=== PATIENT | female | born 1985 | race Caucasian/White ===

== ENCOUNTER 2020-11-15 03:02 | Outpatient (CLI) | payer BC, SELFPAY ==
[2020-11-15 17:42] LABS: TSH (W/Ref FT4) 2.01 uIU/mL (0.36-3.74)
== END 2020-11-15 03:03 | disposition home or self-care (01) ==
PROVIDERS: Visit Provider Nurse Practitioner Family
DX: Z32.01 Encounter for pregnancy test, result positive (principal); Z86.39 Personal history of other endocrine, nutritional and metabolic disease; R53.83 Other fatigue
CPT/HCPCS: 36415; 84443

== ENCOUNTER 2020-12-09 03:50 | Outpatient (CLI) | payer BC, SELFPAY ==
[2020-12-09 15:02] LABS: Kit/Specimen SENT
[2020-12-09 15:26] LABS: Abs Immature Grans 0.05 10^3/uL (0.0-0.06); Absolute Basophil Count 0.05 10^3/uL (0.0-0.2); Absolute Eosinophil Count 0.12 10^3/uL (0.0-0.7); Absolute Lymphocyte Count 2.43 10^3/uL (1.2-3.4); Absolute Monocyte Count 0.62 10^3/uL (0.1-0.8); Basophils % 0.4; Eosinophils % 0.9; HCT 40.4 % (36.0-46.0); HGB 13.8 g/dL (11.2-15.7); Immature Grans % 0.4; Lymphocytes % 18.2; MCH 29.6 pg (27.0-33.0); MCHC 34.2 % (32.0-36.0); MCV 86.7 fL (80-95); MPV 11.4 fL (8.0-11.0); Monocytes % 4.6; Neutrophils % 75.5; Nucleated RBC 0 %; Platelet Count 233 10^3/uL (130-400); RBC 4.66 10^6/uL (3.93-5.22); RDW 12.3 % (11.7-14.6); WBC 13.37 10^3/uL (4.4-10.8)
[2020-12-09 15:29] LABS: Absolute Neutrophil Count 10.09 10^3/uL (1.2-6.7)
[2020-12-09 16:13] LABS: *AMPHETAMINES SCREEN URINE Negative (Negative); *BARBITURATES SCREEN URINE Negative (Negative); *BENZODIAZEPINES SCREEN URINE Negative (Negative); Cannabinoids THC Negative (Negative); Cocaine Screen,Urine Negative (Negative); METHADONE URINE SCREEN Negative (Negative); OPIATES URINE SCREEN Negative (Negative)
[2020-12-09 16:17] LABS: Tricyclic Antidepressants Negative (Negative)
[2020-12-10 10:08] LABS: Hepatitis C Ab w Rflx HCV PCR Negative (Negative)
[2020-12-10 11:08] LABS: Varicella IgG Antibody Negative (See Note)
[2020-12-10 11:12] LABS: Rubella IgG Ab (UVM) Positive (See Note)
[2020-12-10 11:20] LABS: HIV-1/2 Ag & Ab Screen Negative (Negative)
[2020-12-10 12:59] LABS: Hepatitis B Surface Ag Negative (Negative)
[2020-12-11 13:35] LABS: Syphilis Total Ab w/Reflex Nonreactive (Nonreactive)
[2020-12-18 23:06] LABS: Result Summary NEGATIVE; Specimen WB Whole Blood
[2020-12-19 13:50] LABS: Specimen WB Whole Blood
== END 2020-12-09 03:51 | disposition home or self-care (01) ==
LOC: LBO 03:50
PROVIDERS: Visit Provider Advanced Practice Midwife
DX: O09.521 Supervision of elderly multigravida, first trimester (principal); Z34.91 Encounter for supervision of normal pregnancy, unspecified, first trimester; Z36.89 Encounter for other specified antenatal screening
CPT/HCPCS: 80307; 81329; 86787; 86803; 86850; 86900; 86901; 87340; 87389; 81220; 84443; 85025; 86762; 86780; 87086

== ENCOUNTER 2021-01-28 13:31 | Outpatient (REF) | payer BC, SELFPAY ==
[2021-01-29 15:26] LABS: Chlamydia Result Negative (Negative); GC Result Negative (Negative)
== END 2021-01-28 13:32 | disposition home or self-care (01) ==
LOC: LBN 13:31
PROVIDERS: Visit Provider Advanced Practice Midwife
DX: Z11.3 Encounter for screening for infections with a predominantly sexual mode of transmission (principal)
CPT/HCPCS: 87491; 87591

== ENCOUNTER 2021-02-03 02:32 | Outpatient (CLI) | payer BC, SELFPAY ==
[2021-02-03 17:42] LABS: FREE T4 0.99 ng/dL (0.76-1.46); TSH 4.75 uIU/mL (0.36-3.74)
[2021-02-06 10:01] LABS: Buprenorphine Negative ng/mL (Cutoff: 5.0); Norbuprenorphine Negative ng/mL (Cutoff: 2.5)
== END 2021-02-03 02:33 | disposition home or self-care (01) ==
LOC: LBO 02:32
PROVIDERS: Advanced Practice Midwife; Visit Provider Advanced Practice Midwife
DX: O09.521 Supervision of elderly multigravida, first trimester; Z86.39 Personal history of other endocrine, nutritional and metabolic disease
CPT/HCPCS: 36415; 80307; 84439; 84443

== ENCOUNTER 2021-02-25 01:57 | Outpatient (CLI) | payer BC, SELFPAY ==
[2021-02-25 11:09] LABS: TSH (W/Ref FT4) 1.72 uIU/mL (0.36-3.74)
== END 2021-02-25 01:58 | disposition home or self-care (01) ==
LOC: LBO 01:58
PROVIDERS: Visit Provider Advanced Practice Midwife
DX: E03.9 Hypothyroidism, unspecified (principal); O99.280 Endocrine, nutritional and metabolic diseases complicating pregnancy, unspecified trimester
CPT/HCPCS: 36415; 84443

== ENCOUNTER 2021-04-08 02:09 | Outpatient (CLI) | payer BC, SELFPAY | END 2021-04-08 02:10 | disposition home or self-care (01) | LOC: LBO 02:10 | PROVIDERS: Visit Provider Advanced Practice Midwife ==

== ENCOUNTER 2021-04-10 03:11 | Outpatient (CLI) | payer BC, SELFPAY ==
[2021-04-10 12:06] LABS: HCT 38.7 % (36.0-46.0); HGB 12.9 g/dL (11.2-15.7); MCH 29.9 pg (27.0-33.0); MCHC 33.3 % (32.0-36.0); MCV 89.8 fL (80-95); MPV 11.2 fL (8.0-11.0); Platelet Count 192 10^3/uL (130-400); RBC 4.31 10^6/uL (3.93-5.22); RDW 12.7 % (11.7-14.6); RDW-SD 42.3 fL
[2021-04-10 12:14] LABS: Glucose,1 Hr (Glucola) 118 mg/dL (80-140)
== END 2021-04-10 03:12 | disposition home or self-care (01) ==
LOC: LBO 03:12
PROVIDERS: Advanced Practice Midwife; Visit Provider Advanced Practice Midwife
DX: Z34.93 Encounter for supervision of normal pregnancy, unspecified, third trimester (principal)
CPT/HCPCS: 36415; 82950; 85027

== ENCOUNTER 2021-05-22 03:39 | Outpatient (CLI) | payer BC, SELFPAY ==
[2021-05-22 18:16] LABS: FREE T4 1.03 ng/dL (0.76-1.46); TSH 2.64 uIU/mL (0.36-3.74)
== END 2021-05-22 03:40 | disposition home or self-care (01) ==
LOC: LBO 03:39
PROVIDERS: Advanced Practice Midwife; Visit Provider Advanced Practice Midwife
DX: E03.9 Hypothyroidism, unspecified (principal); O99.283 Endocrine, nutritional and metabolic diseases complicating pregnancy, third trimester
CPT/HCPCS: 36415; 84439; 84443

== ENCOUNTER 2021-06-04 16:59 | Outpatient (REF) | payer BC, SELFPAY ==
[2021-06-04 15:15] LABS: *AMPHETAMINES SCREEN URINE Negative (Negative); *BARBITURATES SCREEN URINE Negative (Negative); *BENZODIAZEPINES SCREEN URINE Negative (Negative); Cannabinoids THC Negative (Negative); Cocaine Screen,Urine Negative (Negative); METHADONE URINE SCREEN Negative (Negative); OPIATES URINE SCREEN Negative (Negative)
[2021-06-04 15:17] LABS: Tricyclic Antidepressants Negative (Negative)
[2021-06-10 10:34] LABS: Buprenorphine Negative ng/mL (Cutoff: 5.0); Norbuprenorphine Negative ng/mL (Cutoff: 2.5)
== END 2021-06-04 17:00 | disposition home or self-care (01) ==
LOC: LBN 16:59
PROVIDERS: Visit Provider Advanced Practice Midwife
DX: O09.523 Supervision of elderly multigravida, third trimester (principal)
CPT/HCPCS: 80307; 87081

== ENCOUNTER 2021-06-13 02:51 | Outpatient (CLI) | payer BC, SELFPAY | END 2021-06-13 02:52 | disposition home or self-care (01) | LOC: LBO 02:51 | PROVIDERS: Visit Provider Advanced Practice Midwife ==

== ENCOUNTER 2021-06-20 02:14 | Outpatient (CLI) | payer BC, SELFPAY ==
[2021-06-20 22:15] LABS: Thyroperoxidase Antibody <28 U/mL (<=60)
== END 2021-06-20 02:15 | disposition home or self-care (01) ==
LOC: LBO 02:15
PROVIDERS: Visit Provider Advanced Practice Midwife
DX: O99.283 Endocrine, nutritional and metabolic diseases complicating pregnancy, third trimester (principal); E03.9 Hypothyroidism, unspecified; Z3A.38 38 weeks gestation of pregnancy
CPT/HCPCS: 36415; 86376

== ENCOUNTER 2021-07-09 07:36 | Outpatient (CLI) | payer BC, SELFPAY ==
[2021-07-09 09:14] VITALS: BP 113/74; PULSE 96; TEMP 36.8
--- NOTE | 2021-07-09 12:23 | W.OBNST ---
Date of service: 07/09/21 Time of Service: 12:24 NST Evaluation Reason for NST Reasons for Nonstress Test: POSTDATES Gestational Age Gestational Age in Weeks and Days: 41 Weeks and 1Days Test and Monitor Explained Test/Monitor Explained: Test Explained and Monitor Explained Vital Signs Blood Pressure: 113/74 Pulse: 96 Temperature: 98.2 F Urine Results Urine Protein: Negative Urine Ketones: Negative Urine Glucose: Negative Urine Blood: Negative NST Information Date on Monitor: 07/09/21 Time on Monitor: 09:10 Date off Monitor: 07/09/21 Time off Monitor: 09:40 Total Time on Monitor: 30 NST Interventions: PO Hydration NST Evaluation Patient States Movement: Present FHR Baseline: 150 Variability: Moderate 6-25 bpm Accelerations: 15x15 Decelerations: None NST Results: Reactive Note NST Note Note: SUNNY 19 Returns in 5 days for induction of labor for postdates NST Reviewed and Verified by: Mar Currie
[2021-07-09 12:24] VITALS: BP 113/74; PULSE 96; TEMP 36.8
== END 2021-07-09 10:15 | disposition home or self-care (01) ==
LOC: BCD 07:42 → OBS 08:59
PROVIDERS: Visit Provider Advanced Practice Midwife
DX: O48.0 Post-term pregnancy (principal); Z3A.41 41 weeks gestation of pregnancy
CPT/HCPCS: 59025

== ENCOUNTER 2021-07-14 07:44 | Inpatient (IN) | payer BC, SELFPAY ==
[2021-07-14] VITALS (24 sets, daily range): BP systolic 104–140; BP diastolic 57–79; PULSE 67–195; RESP 12–20; TEMP 36.8–37.1; O2SAT 83–100; BMI 29.1
--- NOTE | 2021-07-14 08:51 | HPE_ITS ---
Date of service: 07/14/21 Time of Service: 08:51 Assessment and Plan Assessment and plan (1) Encounter for induction of labor: Status: Acute Assessment and plan: A: 35 yo @ 41+6 wks Rodriguez score=5, EFW 4100 gms Pelvis proven to 88 GBS neg, Category 1 tracing Increased risk of SD and PPH due to EFW/postdates AMA with nml screening, hypothyroidism on medication P: Admit to BC, CBC, T&S, COVID swab Begin cervical ripening with misoprostel Dr. Mccullough available for consultation as needed Anticipate (2) 41 weeks gestation of : Status: Acute OB-HPI Labor/Delivery History of Present Illness Reason for Visit: Induction Chief Complaint: Scheduled Induction of Labor Indication for Induction: Post Date. LYNETTE Calculator Estimated Delivery Date Method Current WG Current Estimate 07/01/21 LMP (Certain) 41w 6d Other Estimates 07/01/21 Ultrasound #1 41w 6d History of Present Expected Delivery Route/Plan - CNM FOB/ - Edinson Earl (2nd child together) Varicella Non-Immune, offer vaccine / GBS neg BB no circ Interested in nitrous oxide, hopes to avoid epidural- planning placental encapsulation Specific Issues/Plan 1. Closely spaced preg's, conceived @ 11 months PP 2. AMA: accepts [facility] referral and level 2 sono 2a. US at [facility] 02/11/21: nml, MFM consult completed, no further surveillance needed 3. Desires all genetic testing, drawn 12/09/20; plan single marker AFP 16-20 wks 3a.CF neg, SMA, and Claritest neg- decided not to have AFP. 4. Hx depression and PPD, no meds. Accepts referral to [facility] 5. s/p breast reduction, had milk supply issues, interested in LC consult after 36 wks 6. PCN allergy ID'ed in childhood, desires [facility] allergy testing 6a. consult 02/04/21 @ 19 wks: plan skin testing prior to 28 wks on 04/08/21 6b. [facility] allergy test 04/08/21: No risk of anaphylaxis, 2% risk of skin rash 7. Hypothyroidism - stopped medication 6 weeks post . First trimester TSH 1.80- 7a. second trimester TSH 4.75 started on 25 mcg levothyroxine 7b. repeat TSH 02/25: nml @ 1.72. repeat @ 34 wks: TSH 2.64 (WNL)- TPO - (WNL) 8. Varicella non immune - discuss w/pt 02/25, accepts vaccine 9. Viky received booster, Edinson is vaccinated. Assessment: History Reviewed & Current Informed Consent Informed Consent: Induction of Labor and Risk,Benefits,Alternatives Discussed Review of Systems Constitutional Constitutional: Reports system reviewed and no additional complaints, except as documented Cardiovascular Cardiovascular: Reports system reviewed and no additional complaints, except as documented Respiratory Respiratory: Reports system reviewed and no additional complaints, except as documented Gastrointestinal Gastrointestinal: Reports system reviewed and no additional complaints, except as documented Genitourinary Genitourinary: Reports system reviewed and no additional complaints, except as documented (mucous plug came out this morning, pink tinged) Musculoskeletal Musculoskeletal: Reports system reviewed and no additional complaints, except as documented Psychiatric Psychiatric: Reports system reviewed and no additional complaints, except as documented PFSH All Active Problems (Updated 07/14/21 @ 08:53 by Mar Currie) 41 weeks gestation of (Acute) Encounter for induction of labor (Acute) Elderly multigravida, currently (Acute) Hypothyroid in , antepartum (Acute) Maternal varicella, non-immune (Acute) Status post breast reduction (Acute) History of depression (Acute) Medical History (Updated 07/14/21 @ 08:53 by Mar Currie) History of hypothyroidism Penicillin allergy Went to [facility] for allergy testing 04/08/21, has no risk of anaphylaxis, and 2% risk for skin rash. Family History (Updated 04/22/21 @ 15:59 by Tamar Lanza CNM) Paternal Grandmother Breast cancer Father Hyperlipidemia Sister Autonomic neuropathy due to disorder of immune function Hypothyroid Social History Smoking/Tobacco Use Status: Never Smoking risk assessment performed?: Yes History History 6 Para 1 Hx # Term Pregnancies 1 Multiple births 0 Hx # Pregnancies 0 Ectopic pregnancies 0 AB induced 0 Hx Number of Living Children 1 AB spontaneous 4 Past Pregnancies Del. Date GA/Weeks # Outcome Route Wgt Sex Labor Lgth Anesthes ia Location Prov Complic 10/22/19 40 No Successful vaginal 8 lb 8 oz Female Induced, 2 days r egional [place], [place] Delivery Date: 10/22/19 Last Updated by: Tamar Lanza CNM Placenta previa - resolved. unstable lie >37 wks, baby verted self on day of sched'ed C/S so IOL instead: raphael bulb & cervidil together, then pitocin, epidural, Charley Meds Allergies and Home Medications Allergies Allergy/AdvReac Type Severity Reaction Status Date / Time Penicillins Allergy Severe Full Blown Verified 07/03/21 11:33 rash/hives Home Medications Medication Instructions Recorded Confirmed Type lactobacillus combination no.4 3 3,000 mmu cells PO DAILY 11/14/20 07/14/21 History billion cell capsule (Probiotic) prenat.vits,lito,[id number] 1 tab PO DAILY 11/14/20 07/14/21 History pyridoxine (vitamin B6) 50 mg 50 mg PO DAILY PRN 01/06/21 07/14/21 History tablet magnesium carbonate 250 mg capsule 320 mg PO DAILY cap 03/25/21 07/14/21 History levothyroxine 25 mcg tablet 25 mcg PO DAILY #60 tab 06/18/21 07/14/21 Rx Exam Physical Exam Vital signs: P 88, R 12, temp 98.8 Vital Signs Reviewed: Yes Constitutional Constitutional: no acute distress, average body habitus and cooperative Detailed Labor and Delivery Exam Dilation: 3.5 Effacement (%): 60 station: -3 Position: LOP Cervix position: posterior Consistency: medium RODRIGUEZ Score(Cervical Ripeness Score): 5 Amniotic Membrane Status: Intact Fetus A Heart Rate Baseline: 145 Monitor Accelerations: 15 X 15 Monitor Decelerations: None Variability: Moderate (6-25 BPM) Presentation: Cephalic Categories: Category I Est. Weight: 9 lb 0.623 oz Est. Weight: 4100 gms HEENT Exam HEENT Exam: Normal Neck Exam Neck Exam: Normal Chest/Brest/Axilla Exam Chest Exam: Normal Breast Exam Breast Exam: Not Done Respiratory Exam Respiratory Exam: Normal Cardiovascular Exam Cardiovascular Exam: Normal Abdominal Exam Abdominal Exam: Normal (Gravid, nontender) Rectal Exam Rectal Exam: Normal Exam Exam: Normal Extremities Exam Extremities Exam: Normal Back/Spine/Pelvis Exam Back Exam: Normal Skin Exam Skin Exam: Normal Neurological Exam Neurological Exam: Normal Psychiatric Exam Psychiatric Exam: Normal Results Results Group Beta Strep: Negative Blood Type: B+ Rubella Status: Immune Varicella Immunity: Nonimmune Risk Assessment Risk for Shoulder Dystocia Historical/Initial OB: NEGATIVE FOR: Pelvic Abnormality, Pre- BMI>30, Previous Shoulder Dystocia or Previous Macrosomia 40 Weeks: NEGATIVE FOR: EFW> 4500 gms, Maternal Weight Gain >40lb or Post Dates Increased Risk?: Yes Delivery Plan @ 36wks: spont labor, , pelvis proven to Delivery Plan @ 40 wks: spont labor, Risk for Pre-Eclampsia Date Initiated/Initials: not indicated, JK Yes, if one or more: NEGATIVE FOR: Hx Pre-E/Gest HTN, Chronic HTN, Multiple Gestation, Pre-gestational DM, Renal Disease, Systemic Lupus or APA Syndrome Yes, if 2 or more: POSITIVE FOR: Age>= 35 yrs; NEGATIVE FOR: Nulliparity, >10yr btwn pregnancies, BMI>30, ethinicty, Mother/Sister w/ Pre-E or Previous IUGR Risk for Post- Hemorrhage Initial: NEGATIVE FOR: Multiple Gestation, Previous PPH, Known Clotting Deficiency, Grand Multiparity or Anticoagulation At Risk?: Yes (due to EFW >4000 gms) Counseled re: Active Management: Yes Risks Reviewed Risks Reviewed Upon Admission: Yes
[2021-07-14] MEDS: miSOPROStol 25 MCG TAB PO ×2 (09:59→14:20)
[2021-07-14 10:09] LABS: Source Nasal/Nares
[2021-07-14 10:10] LABS: HCT 38.7 % (36.0-46.0); HGB 12.6 g/dL (11.2-15.7); MCH 28.3 pg (27.0-33.0); MCHC 32.6 % (32.0-36.0); MCV 87 fL (80-95); MPV 12.4 fL (8.0-11.0); Platelet Count 207 10^3/uL (130-400); RBC 4.46 10^6/uL (3.93-5.22); RDW 13.2 % (11.7-14.6); RDW-SD 41.4 fL; WBC 13.04 10^3/uL (4.4-10.8)
[2021-07-14 10:47] LABS: COVID-19 PCR Negative (Negative)
[2021-07-14] MEDS: Bupivacaine 0.25% Pres-Free 10 ML VIAL EP (11:15)
[2021-07-14] MEDS: Lactated Ringers 1,000 ML 150 ML IV (16:30)
--- NOTE | 2021-07-14 17:50 | W.PM.OBNL1 ---
Date of service: 07/14/21 Time of Service: 17:50 Informed Consent Informed Consent: Risk,Benefits,Alternatives Discussed and Other (AROM) Pelvic Exam Dilation: 6 Effacement (%): 70 station: -2 Position: LOP Cervix Position: mid Consistency: soft Vaginal Exam Presentation: Cephalic Contractions Contraction Frequency(min): q3-4 Intensity: Mild/Moderate Fetus A Monitor: External (US) Heart Rate Baseline: 140 Variability: Moderate (6-25 BPM) Categories: Category I Accelerations: 15 X 15 Decelerations: Early Amniotic Membrane Status: Ruptured Rupture Method: Artifical Amniotic Fluid: Clear Amount: large Date of Membrane Rupture: 07/14/21 Time of Membrane Rupture: 17:43 Assessment and Plan Assessment and plan (1) Encounter for induction of labor: Status: Acute Assessment and plan: A: Multipara postdates induction Cervical ripening completed Category 1 tracing, Baseline 140 bpm P: Expectant management Anticipate Objective Abnormal lab results 07/14/21 Range/Units 09:45 WBC 13.04 H (4.4-10.8) 10^3/uL MPV 12.4 H (8.0-11.0) fL Temp Pulse Resp BP 98.8 F 75 12 120/76 07/14/21 15:26 07/14/21 17:47 07/14/21 09:06 07/14/21 17:47 Laboratory Results WBC 13.04 10^3/uL (4.4-10.8) H 07/14/21 09:45 RBC 4.46 10^6/uL (3.93-5.22) 07/14/21 09:45 Hgb 12.6 g/dL (11.2-15.7) 07/14/21 09:45 Hct 38.7 % (36.0-46.0) 07/14/21 09:45 MCV 87 fL (80-95) 07/14/21 09:45 MCH 28.3 pg (27.0-33.0) 07/14/21 09:45 MCHC 32.6 % (32.0-36.0) 07/14/21 09:45 RDW 13.2 % (11.7-14.6) 07/14/21 09:45 Plt Count 207 10^3/uL (130-400) 07/14/21 09:45 MPV 12.4 fL (8.0-11.0) H 07/14/21 09:45 COVID-19 Source Nasal/Nares 07/14/21 09:50 SARS-CoV-2 (PCR) Negative (Negative) 07/14/21 09:50 Patient ABO/Rh B Positive 07/14/21 09:45 Antibody Screen NEGATIVE 07/14/21 09:45 Vital Signs Reviewed: Yes Objective Narrative Objective Narrative: Received misoprostel 25 mcg PO q4 hrs x2 Large forebag bulging with contraction Cvx 6/70% vtx -2 AROM easily accomplished for large amt clear fluid Pt and baby tolerated procedure well Normotensive, afebrile, labs WNL IV access established Coping very well with labor, FOB bedside for support Pt has been ambulating, using floor mat and physioball Category 1 tracing per NOVI Subjective Interval history since last seen: Increasingly uncomfortable contractions throughout the day. Tolerating PO intake well. Results Hemoglobin/Hematocrit: Hgb 12.6 g/dL (11.2-15.7) 07/14/21 09:45 Hct 38.7 % (36.0-46.0) 07/14/21 09:45 Abnormal Lab Findings: Abnormal Labs 07/14/21 09:45 WBC 13.04 H MPV 12.4 H
--- NOTE | 2021-07-14 22:30 | W.PM.OBNL1 ---
Date of service: 07/14/21 Time of Service: 22:30 Informed Consent Informed Consent: Regional Anesthesia and Risk,Benefits,Alternatives Discussed Pelvic Exam Dilation: 7 Effacement (%): 70 station: -2 Cervix Position: mid Consistency: soft Vaginal Exam Presentation: Cephalic Contractions Contraction Frequency(min): q2-3 Intensity: Moderate/Strong Fetus A Monitor: External (US) Heart Rate Baseline: 140 Presentation: Cephalic Variability: Moderate (6-25 BPM) Categories: Category I Accelerations: 15 X 15 Decelerations: Early Amniotic Membrane Status: Ruptured Assessment and Plan Assessment and plan (1) Encounter for induction of labor: Status: Acute Assessment and plan: A: Active labor, slow progress since AROM 4 hrs ago Pt requesting regional anesthesia 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 Pt has showered, used nitrous, changed positions often, emesis x1, currently in the tub. Now requesting regional anesthesia.
[2021-07-14] MEDS: Lactated Ringers 500 ML IV (22:45)
--- NOTE | 2021-07-14 22:57 | W.ANESPRE ---
General Info Date of Service Date Performed: 07/14/21 Height: 5 ft 8.9 in Weight: 89.358 kg Body Mass Index (BMI): 29.1 Meds Allergies and Home Medications Allergies Allergy/AdvReac Type Severity Reaction Status Date / Time Penicillins Allergy Severe Full Blown Verified 07/03/21 11:33 rash/hives Home Medication Medication Instructions Recorded lactobacillus combination no.4 3 3,000 mmu cells PO DAILY 11/14/20 billion cell capsule (Probiotic) prenat.vits,lito,[id number] 1 tab PO DAILY 11/14/20 pyridoxine (vitamin B6) 50 mg 50 mg PO DAILY PRN 01/06/21 tablet magnesium carbonate 250 mg capsule 320 mg PO DAILY cap 03/25/21 levothyroxine 25 mcg tablet 25 mcg PO DAILY #60 tab 06/18/21 Current Visit Medications: Current Medications Generic Name Dose Route Start Last Admin Trade Name Freq PRN Reason Stop Dose Admin Fentanyl/Ropivacaine 100 ml 07/14/21 22:45 Fentanyl/Ropivacaine 2 Mcg/Ml And 0.125% 100 Ml Bag EP DIRECTED GALO Sodium Chloride 500 mls @ 0 mls/hr 07/14/21 16:43 Saline 500ml Bag IV PRN PRN As Directed Ringer's Solution 500 mls @ 500 mls/hr 07/14/21 22:36 IV 07/14/21 23:35 BOLUS ONE IV Miscellaneous Supplies 1 each 07/14/21 16:45 Iv Access IV DIRECTED GALO Levothyroxine Sodium 25 mcg 07/15/21 06:00 Levothyroxine 25 Mcg Tab PO DAILY@0600 GALO Sodium Chloride 0 ml 07/14/21 16:43 Normal Saline Flush 10 Ml Syr IVP PRN PRN Terbutaline Sulfate 0.25 mg 07/14/21 07:44 Terbutaline 1 Mg/Ml Vial SC PRN PRN PFSH Active Problems Active Problems: Problem Status Onset Code 41 weeks gestation of Z3A.41 Encounter for induction of labor Z34.90 Elderly multigravida, currently O09.529 Hypothyroid in , antepartum O99.280, E03.9 Maternal varicella, non-immune O09.899, Z28.3 Status post breast reduction Z98.890 History of depression Z87.59, Z86.59 Medical History Medical History (Updated 07/14/21 @ 08:53 by Mar Currie) History of hypothyroidism Penicillin allergy Went to [facility] for allergy testing 04/08/21, has no risk of anaphylaxis, and 2% risk for skin rash. Tobacco Smoking/Tobacco Use Status: Never Alcohol Alcohol Intake: current Alcohol intake frequency: a few times a month Alcohol type: wine Substance Use Substance use: Occasionally Substance use type: marijuana Prental History History 6 Para 1 Hx # Term Pregnancies 1 Multiple births 0 Hx # Pregnancies 0 Ectopic pregnancies 0 AB induced 0 Hx Number of Living Children 1 AB spontaneous 4 Past Pregnancies Del. Date GA/Weeks # Outcome Route Wgt Sex Labor Lgth Anesthesia Location Prov Complic 10/22/19 40 No Successful vaginal 3855.535 g Female Induced, 2 days regional [place], [place] Delivery Date: 10/22/19 Last Updated by: Tamar Lanza CNM Placenta previa - resolved. unstable lie >37 wks, baby verted self on day of sched'ed C/S so IOL instead: raphael bulb & cervidil together, then pitocin, epidural, Corine Vital Signs and Lab Results Vital Signs Most Recent Vital Signs in EMR: Most Recent Vital Signs Temp Pulse Resp BP 37.1 C 114 H 20 124/58 L 07/14/21 22:28 07/14/21 22:52 07/14/21 21:06 07/14/21 22:52 Lab Results Result Diagrams: 07/14/21 09:45 Blood Type / Crossmatch: Patient ABO/Rh B Positive 07/14/21 Antibody Screen NEGATIVE 07/14/21 Complete Blood Count: White Blood Count 13.04 10^3/uL (4.4-10.8) H 07/14/21 09:45 07/14/21 Red Blood Count 4.46 10^6/uL (3.93-5.22) 07/14/21 09:45 07/14/21 Hemoglobin 12.6 g/dL (11.2-15.7) 07/14/21 09:45 07/14/21 Hematocrit 38.7 % (36.0-46.0) 07/14/21 09:45 07/14/21 Platelet Count 207 10^3/uL (130-400) 07/14/21 09:45 07/14/21 Complete Metabolic Panel: No Data to Display Liver Function Panel: No Data to Display Coagulation Panel: No Data to Display Cardiac Panel: No Data to Display Arterial Blood Gas: No Data to Display Venous Blood Gas: No Data to Display Pancreas Panel: No Data to Display Thyroid Panel: No Data to Display Infectious Disease: Coronavirus (COVID-19)(PCR) Negative (Negative) 07/14/21 09:50 07/14/21 Coronavirus 2019 Source Nasal/Nares 07/14/21 09:50 07/14/21 Blood Cultures: No Data to Display Toxicology Panel: No Data to Display Panel: No Data to Display Anesthesia Assessment and Plan Anesthesia History Personal History: No History of Anesthesia Complications Family History: No Family History of Anesthesia Complications Exercise Tolerance Exercise Tolerance: Metabolic Equivalents>4 Pertinent Negatives Pertinent Negatives: No Major Cardiovascular Symptoms or Complaints and No Major Pulmonary Symptoms or Complaints Cardiac & Pulmonary Exam Cardiac Exam: Normal S1/S2 Heart Sounds Pulmonary Exam: Clear Bilateral Breath Sounds Implantable Cardiac Device Does patient have a Pacemaker or an ICD?: No Airway Exam Known Difficult Airway: No Mallampati Class: 2 Mouth Opening: Normal (> 3cm) Thyromental Distance: Greater than 3 cm Neck Range of Motion: Full ROM Neck Circumference: Normal Teeth Condition: Normal Dentition ASA Classification ASA Score: ASA 2 Emergency Case?: No NPO Status NPO Status: NPO Clears >2 hours, Solids >8 hours Status Status: Confirmed Anesthesia Plan Resuscitation Status: Full Code Anesthesia Technique: Epidural Anesthesia Airway Planned: Natural Airway Monitors Used: Standard Monitors
[2021-07-14] MEDS: fentaNYL 100 MCG/2 ML VIAL EP (23:15)
--- NOTE | 2021-07-14 23:35 | ANES.NEUR_ITS ---
Epidural/Spinal Catheter Date Performed: 07/14/21 Procedure Start: 23:03 Procedure Stop: 23:36 Requesting Provider: Mar Currie Procedure Location: Obstetrics Reason Performed: Labor Epidural Standard Monitors Applied: Blood Pressure, SpO2 and See EMR for corresponding vital signs Patient Position: Sitting Sedation Given (Indicate Dose Given): No Sedation given Patient Mental Status: Awake Sterility: Hand Hygiene, Surgical Cap, Surgical Mask, Sterile Gloves, Sterile Drape/Sheet and Chlorhexidine Procedure Location: L2-L3 Interspace Epidural Needle: Tuohy 18 Gauge Needle Length: 3.5 Inch Needle Approach: Midline Epidural Procedure: Skin Prepped, Sterile Drape Placed, 1% Lidocaine to skin and subcutaneous tissue with 25G needle, Tuohy Needle placed, ABRAHAM to Saline Used, Epidural Catheter Placed, Negative Heme, Negative CSF Flow and Tuohy Needle Removed Catheter Placed?: Catheter Placed Test Dose (Indicate Dose Given): 3ml 1.5% Lidocaine with 1:200K Epinephrine Given and Negative Test Dose Loss of Resistance Depth (cm): 7 Catheter depth at skin (cm): 13 Dressing: Sorbaview Dressing Placed, Mastisol Used and Dressing reinforced with Tape Epidural Provid er Bolus (Indicate Dose Given): Total bolus dose given in 3-5 ml divided doses and Total Bupivacaine 0.25% Given (ml) Dose:: 5 ml Additives (Indicate Dose Given ): Fentanyl PF Dose:: 100 mcg Infusion Medication: Medication Infusion Began Medication Infusion: Other (Ropivicaine 0.125% with Fentanyl 2 mcg/ml) Maintenance Infusion Rate (ml/hour): 10 PCEA Bolus Dose (ml): 5 Post Procedure Pain score (0-10): 2 Block Level: N/A Paresthesia: None Ultrasound: Not Used Number of Attempts (See previous attempts in note section): 1 Procedure Tolerated: No Complications and Patient tolerated well Procedure Outcome: Successful Procedure Comment:: Progressed from 7cm pre to 9 cm dilation post- procedure Performed By: Nanda Lyons
[2021-07-15] VITALS (16 sets, daily range): BP systolic 111–129; BP diastolic 60–82; PULSE 76–133; RESP 18–20; TEMP 36.6–37.3; O2SAT 97–98
[2021-07-15] MEDS: Oxytocin 10 UNITS/ML VIAL IM (00:36)
[2021-07-15] MEDS: Methylergonovine 0.2 MG/ML VIAL (00:37)
--- NOTE | 2021-07-15 01:11 | OBVDS_ITS ---
Date of service: 07/15/21 Time of Service: 01:11 OB Labor/ Delivery Information Baby A Delivery Delivery Method: Spontaneaous Presentation: Cephalic Cephalic Position: Vertex Vertex Position: Left Occipital Anterior Cord Description-Baby A: 3 Vessels, Nuchal Cord (loose) and Reduced Amniotic Fluid: Clear Estimated Blood Loss: 500 ml Delivery Outcome: Liveborn Transferred: Remains with Mother Note: Pt made comfortable after epidural placed, resting in LLP with Pnut ball to encourage rotation and descent, involuntary urges to bear down began shortly thereafter. SVE for 9 cm and vtx +2, category 1 tracing continued. 2nd stage hu ddle completed, preparations for risk of PPH and SD made. Contractions became less frequent, pitocin augmentation begun @ 1mu/min eventually increased to 3 mu/min. Pt repositioned to semifowlers, excellent expulsive efforts resulted in over intact perineum of a vigorous male , pt's legs already in Kristopher position for delivery, loose nuchal cord reduced over head, anterior shoulder came easily, delivery completed and placed in mother's arms immediately. IV access found bent and had to be discontinued, pitocin 10 units given IM and methergine 0.2 mg also given IM in response to PPH risk d/t macrosomia, large gush of blood noted after which Lewis placenta delivered intact with 3VC. Fundus firm below umbilicus and bleeding minimal, cord blood collected, then cord was clamped and cut by FOB. IV restarted for pitocin bolus and infusion, lochia remained minimal with fundus firm. Superficial perineal laceration noted and edges approximated with 1 stitch of 3.0 Vicryl. Lower uterine sweep then done for moderate amount of clots bringing EBL to 500 ml. Pt requests to take placenta home, appropriately labeled and stored. Strong bonding observed, apgars 7/9, weight 4520 gms. Providers Nurse Family Preservation Worker: Mar Currie Nurse: Carlotta Conde Nurse: Christine Fang Labor/Delivery Information Number of Babies in Womb: 1 Steroids Given: None Reason Steroids Not Administered: N/A Group Beta Strep: Negative Antibiotics Administered: No Rubella Status: Immune Blood Type: B+ Varicella Immunity: Nonimmune Shoulder Dystocia: No Stages of Labor Onset of Labor Date: 07/14/21 Onset of Labor Time: 17:45 Complete Dilatation Date: 07/14/21 Complete Dilatation Time: 00:00 Labor - Stage 1 Duration: 0 minutes ROM Baby A: 07/14/21 ROM Baby A: 17:43 ROM Total Time- Baby A: hours-1027minutes Infant Delivery Date-Baby A: 07/14/21 Delivery Time-Baby A: 00:36 Labor Stage 2 Duration: 36 minutes Placenta Delivery Date-Baby A: 07/15/21 Placenta Delivery Time-Baby A: 00:42 Labor-Stage 3 Duration: 24 hours and 6 minutes Total Length of Labor-Baby A: -1029 minutes Placenta Cultured: No Placenta Status: Delivered Baby A Gender: Male Gestational Status: Postterm (>42 wks) Gestational Age in Weeks/Days: 41 Weeks and 6 Days weight: 9 lb 15.438 oz Weight Comment: 4520 gms Score-1 Minute Interval(Baby A) Heart Rate-1 minute: 100 BPM or Greater Respiratory Effort- 1 minute: Slow Respiration/Weak Cry Muscle Tone-1 minute: Active Movement Reflex Response-1 minute: Minimal Response Color-1 minute: Bluish Hands or Feet Total Score-1 minute: 7 Score-5 Minute Interval(Baby A) Heart Rate- 5 minute: 100 BPM or Greater Respiratory Effort-5 minute: Spontaneous/Strong Cry Muscle Tone-5 minute: Active Movement Reflex Response-5 minute: Prompt Response Color-5 minute: Bluish Hands or Feet Total Score- 5 minute: 9 Procedure Procedures: Cord Blood Collection
[2021-07-15] MEDS: Dibucaine 1% 28 GM TUBE TP (03:06)
[2021-07-15] MEDS: Hamamelis Leaf/Glycerin 100 EACH BOX PR (03:06)
[2021-07-15] MEDS: Levothyroxine 25 MCG TAB PO (06:04)
--- NOTE | 2021-07-15 09:14 | W.ANESPOSTOP ---
Postoperative Evaluation Date, Time and Location Date Performed: 07/15/21 Time Performed: 09:00 Patient Location: Day Surgery Unit Vital Signs Most Recent Imported Vital Signs: Most Recent Vital Signs Temp Pulse Resp BP Pulse Ox 36.7 C 89 18 129/82 97 07/15/21 07:38 07/15/21 07:38 07/15/21 04:45 07/15/21 07:38 07/15/21 07:38 Pain Score Most Recent Pain Score: Most Recent Pain Score Pain Level 0 07/14/21 09:59 Assessment Mental Status: Awake (Alert & Oriented to Patient Baseline) Airway and Respiratory Function: Patent airway with normal (patient baseline) respiratory exam Cardiovascular Function: Hemodynamically Stable Hydration Status: Adequately Hydrated Nausea & Vomiting: No Nausea or Vomiting Pain: Pt. Denies Any Pain Peripheral Nerve Block: Patient did not receive a nerve block
[2021-07-16] MEDS: Levothyroxine 25 MCG TAB PO (06:08)
--- NOTE | 2021-07-16 06:41 | OBPPV_ITS ---
Date of service: 07/16/21 Time of Service: 06:41 Assessment and Plan Assessment and plan (1) Term delivered: Status: Acute Assessment and plan: A: Nml PPD#1 Satisfied with experience P: Plan discharge to home today Offer 1st varicella vaccine prior to discharge Continue on current thyroid medication dose Plans Paraguard IUD insertion @ 6-8 wks F/up in 2 & 6 wks Written instructions reviewed and given to pt Subjective Subjective Patient comments: No complaints, Pain well controlled, Tolerating diet and Flatus present Patient's Mood: happy, pleased, a little tired baby status: Doing well, Nursing well, Rooming in and Strong Bonding Observed [place] feeding status: Exclusively breast feeding Exam Physical Exam Vital signs: Temp Pulse Resp BP Pulse Ox 97.9 F 77 18 111/72 98 07/15/21 20:06 07/15/21 20:06 07/15/21 20:06 07/15/21 20:06 07/15/21 20:06 Vital Signs Reviewed: Yes Constitutional Constitutional: no acute distress, average body habitus and cooperative HEENT Exam HEENT Exam: Normal Neck Exam Neck Exam: Normal Breast Exam Bilateral: Breast Exam: Normal and Soft Nipple Exam: Normal and Uninjured Respiratory Exam Respiratory Exam: Normal Cardiovascular Exam Cardiovascular Exam: Normal Abdominal Exam Abdomen: Other (soft, nontender) Fundal Exam Fundus: Below Umbilicus and Firm Rectal Exam Rectal Exam: Normal Exam Perineum: Normal and Repair Intact Extremities Exam Extremity Exam: Normal, Full ROM and Warm to Touch Back/Spine/Pelvis Exam Back Exam: Normal Skin Exam Skin Exam: Normal Neurological Exam Neurological Exam: Normal Psychiatric Exam Psychiatric Exam: Normal Hemorrrhage Note IV Site Right Wrist: IV Catheter Gauge: 20
[2021-07-16 06:43] LABS: HCT 33.7 % (36.0-46.0); HGB 11.2 g/dL (11.2-15.7); MCH 28.4 pg (27.0-33.0); MCHC 33.2 % (32.0-36.0); MCV 86 fL (80-95); MPV 12.2 fL (8.0-11.0); Platelet Count 227 10^3/uL (130-400); RBC 3.94 10^6/uL (3.93-5.22); RDW 13.2 % (11.7-14.6); RDW-SD 41.1 fL; WBC 13.89 10^3/uL (4.4-10.8)
[2021-07-16] MEDS: Varicella Virus Vaccine (Live) 0.5 ML SC (09:26)
[2021-07-16] MEDS: Ibuprofen 600 MG TAB PO (09:28)
[2021-07-16 09:30] VITALS: BP 113/73; PULSE 77; RESP 16; TEMP 36.6
--- NOTE | 2021-07-17 19:53 | DSE_ITS ---
Date of service: 07/16/21 Time of Service: 08:00 DS: Diagnosis Discharge Diagnosis (1) Term delivered: Status: Acute Discharge Plan Disposition Patient Disposition: HOME Condition: Good Discharge Details Reason For Visit: Induction Admit Date/Time: 07/14/21 07:44 Admit Provider: Mar Currie Attending Provider: Mar Currie Primary Care Provider: Unknown,Unknown Hospital Course Hospital Course: under epidural anesthesia, nml course, discharge home on PPD#1 at pt request. Home Meds and New Rx's Prescriptions: No Action prenat.vits,lito,[id number]-cjzr-[id number] Tablet 1 tab PO DAILY Probiotic 3 billion cell capsule 3,000 mmu cells PO DAILY Rx Instructions: administer with a meal magnesium carbonate 250 mg capsule 320 mg PO DAILY levothyroxine 25 mcg tablet 25 mcg PO DAILY Qty: 60 0RF Discharge Instructions Additional Instructions: Please keep you 2 & 6 wk appointments with the midwives, though you may change the 2 wk appt to a telehealth visit if you prefer. If you received your first varicella vaccine prior to leaving the hospital, your second Varicella vaccine will be given at the 6 week appointment. Call for any questions or concerns. Stand Alone Forms: BC Instructions, BC Post Vaginal Deliver Activity:: Activity as Tolerated Equipment/Supplies:: No Equipment Needed Diet:: Normal Diet Discharge Orders Discharge Orders: Discharge Order (Routine); Ordered 07/16/21 Ordered By: Mar Currie Discharge Data Discharge Date/Time-TO BE ENTERED AT DEPARTURE: 07/16/21 10:30 OB:DS Summary Summary Vaginal Delivery Method: Spontaneaous Episiotomy Description: None Laceration Description: None Laceration Extension: N/A Contraception Discussed Contraception Discussed: Yes Contraceptive Plan: IUD, Gender-Baby A: Male weight: 9 lb 15.438 oz Status at Discharge Functional status at discharge: independent ambulation Overall status at discharge: patient is progressing back to baseline Mental Status: mental status grossly normal Speech and Movement: speech and movement normal Mood: congruent mood Affect: normal affect Exam Physical Exam Vital signs: Temp Pulse Resp BP Pulse Ox 97.9 F 77 16 113/73 98 07/16/21 09:30 07/16/21 09:30 07/16/21 09:30 07/16/21 09:30 07/15/21 20:06 Constitutional Constitutional: no acute distress, average body habitus and cooperative HEENT Exam HEENT Exam: Normal Neck Exam Neck Exam: Normal Breast Exam Bilateral: Breast Exam: Normal and Soft Respiratory Exam Respiratory Exam: Normal Cardiovascular Exam Cardiovascular Exam: Normal Abdominal Exam Abdomen: Other (soft, nontender) Fundal Exam Fundus: Below Umbilicus and Firm Rectal Exam Rectal Exam: Normal Exam Perineum: Normal and Repair Intact Extremities Exam Extremity Exam: Normal, Full ROM and Warm to Touch Back/Spine/Pelvis Exam Back Exam: Normal Skin Exam Skin Exam: Normal Neurological Exam Neurological Exam: Normal Psychiatric Exam Psychiatric Exam: Normal PFSH All Active Problems (Updated 07/16/21 @ 06:37 by Mar Currie) Term delivered (Acute) Maternal varicella, non-immune (Acute) Status post breast reduction (Acute) History of depression (Acute) Medical History (Updated 07/16/21 @ 06:37 by Mar Currie) 41 weeks gestation of Elderly multigravida, currently Encounter for induction of labor History of hypothyroidism Hypothyroid in , antepartum Penicillin allergy [place] [facility] [place], has no risk of anaphylaxis, and 2% risk for skin rash. Family History (Updated 04/22/21 @ 15:59 by Tamar Lanza CNM) Paternal Grandmother Breast cancer Father Hyperlipidemia Sister Autonomic neuropathy due to disorder of immune function Hypothyroid Social History Smoking/Tobacco Use Status: Never Smoking risk assessment performed?: Yes Alcohol Intake: current Alcohol Intake frequency: a few times a month Alcohol type: wine Drug use: Occasionally Substance use type: marijuana Do you feel safe at home: Yes Do you feel safe in your relationship?: Yes History History 6 Para 1 Hx # Term Pregnancies 1 Multiple births 0 Hx # Pregnancies 0 Ectopic pregnancies 0 AB induced 0 Hx Number of Living Children 1 AB spontaneous 4 Past Pregnancies Del. Date GA/Weeks # Outcome Route Wgt Sex Labor Lgth Anesthes ia Location Prov Complic 10/22/19 40 No Successful vaginal 8 lb 8 oz Female Induced, 2 days r egional [place], [place] Delivery Date: 10/22/19 Last Updated by: Tamar Lanza CNM Placenta previa - resolved. unstable lie >37 wks, baby verted self on day of sched'ed C/S so IOL instead: raphael bulb & cervidil together, then pitocin, epidural, Corine DS: Data Vitals/I&O Vitals and I&O: Vital Signs Temperature 97.9 F 07/16/21 09:30 Pulse 77 07/16/21 09:30 Pulse Rhythm Regular 07/16/21 09:30 Respiratory Rate 16 07/16/21 09:30 Blood Pressure 113/73 07/16/21 09:30 Blood Pressure Mean 86 07/16/21 09:30 Pulse Oximetry 98 07/15/21 20:06 Oxygen Delivery Method Room Air 07/14/21 09:59 Oxygen Flow Rate 0 07/14/21 09:59 Pain Level 2 07/16/21 09:28 Comment 07/14/21 22:28
== END 2021-07-16 10:30 | disposition home or self-care (01) | DRG 807 ==
PROVIDERS: Admitting Provider Advanced Practice Midwife; Visit Provider Advanced Practice Midwife
DX: O48.0 Post-term pregnancy (principal); Z37.0 Single live birth; O70.0 First degree perineal laceration during delivery; O69.81X0 Labor and delivery complicated by cord around neck, without compression, not applicable or unspecified; Z3A.42 42 weeks gestation of pregnancy; O99.344 Other mental disorders complicating childbirth; F32.A Depression, unspecified; O99.284 Endocrine, nutritional and metabolic diseases complicating childbirth; E03.9 Hypothyroidism, unspecified
CPT/HCPCS: 36415; 85027; 86850; 86900; 86901; 87635; 59025; J2210; J2590; J3010; J3490

== ENCOUNTER 2021-08-15 01:50 | Outpatient (CLI) | payer BC, SELFPAY | END 2021-08-15 01:51 | disposition home or self-care (01) | LOC: LBO 01:50 | PROVIDERS: Visit Provider Advanced Practice Midwife | DX: Z86.39 Personal history of other endocrine, nutritional and metabolic disease (principal) | CPT/HCPCS: 36415; 84443 ==

== ENCOUNTER 2022-02-26 02:09 | Outpatient (CLI) | payer BC, SELFPAY ==
[2022-02-26 12:42] LABS: TSH (W/Ref FT4) 1.86 uIU/mL (0.36-3.74)
== END 2022-02-26 02:10 | disposition home or self-care (01) ==
PROVIDERS: Visit Provider Advanced Practice Midwife
DX: E03.9 Hypothyroidism, unspecified (principal)
CPT/HCPCS: 36415; 84443

== ENCOUNTER 2023-04-05 09:19 | Emergency (ER) | payer BC, SELFPAY ==
[2023-04-05 09:26] VITALS: BP 131/80; PULSE 82; RESP 18; TEMP 36.6; O2SAT 98
--- NOTE | 2023-04-05 09:30 | DI.RAD_ITS ---
Exam(s) XR KNEE RT 3V AP,LAT,JUNO EXAM: XR KNEE RT 3V AP,LAT,JUNO CLINICAL HISTORY: R knee injury. TECHNIQUE: 2D digital imaging was performed of the right knee. Three views obtained. AP, lateral an d PA tunnel views were obtained. COMPARISON: No exams were available for comparison FINDINGS: BONES: No acute fracture is present. No bony destructive lesion is seen. JOINTS: The knee is normally aligned. There is a small joint effusion. SOFT TISSUE: Normal. IMPRESSION: Small joint effusion. DATA REPOSITORY: RADIATION DOSE DELIVERED:
--- NOTE | 2023-04-05 10:16 | W.ED.GENAD ---
HPI General Date/Time Provider Initiated Documentation: 04/05/23 09:43. HPI Narrative: 37 year-old female presents to ED today by POV/ambulating with a chief complaint of R knee injury while skiing yesterday, felt a pop, but didn't crash. Quality described as painful with weight-bearing, feels somewhat unstable, no radiation to numbness/tingling distal, deformity, gross swelling, hip pain. Severity is described as 6-7/10. Palliating factors include nothing specific. Provoking factors include nothing specific. Patient not anticoagulated. Related Data Home Medications Medication Instructions Recorded Confirmed lactobacillus combination no.4 3 3,000 mmu cells PO DAILY 11/14/20 09/03/21 billion cell capsule (Probiotic) copper 380 square mm intrauterine 1 device intrauterine ONCE 09/03/21 09/03/21 device (ParaGard T 380A) magnesium carbonate 250 mg capsule 320 mg PO DAILY PRN 09/03/21 09/03/21 escitalopram oxalate 10 mg tablet 10 mg PO DAILY #30 tabs 02/27/22 (Lexapro) Previous Rx's Medication Instructions Recorded escitalopram oxalate 10 mg tablet 10 mg PO DAILY #30 tabs 02/27/22 (Lexapro) Allergies Allergy/AdvReac Type Severity Reaction Status Date / Time Penicillins Allergy Severe Full Blown Verified 09/03/21 11:23 rash/hives General Stated Complaint: Orthopedic ANJU: 4 Review of Systems All systems reviewed & are unremarkable except as noted in HPI and below Exam Narrative Exam Narrative: GENERAL APPEARANCE: Well-nourished, non-toxic, awake and alert, atraumatic, no acute distress. SKIN: Warm, pink, dry, intact, without rashes/lesions/ulcerations. HEAD: Normocephalic, atraumatic, normal hair distribution for gender/age. EYES: Pupils PERRLA, EOMs intact without nystagmus, normal conjunctiva, no exudates on lids/lashes. ENT: Nares patent, no circumoral cyanosis, no facial swelling NECK: Supple, trachea midline, painless cervical ROM. LUNGS/CHEST: Non-labored respirations, normal A/P diameter, symmetrical expansion, no chest wall deformity HEART (CV/PV): No peripheral edema, no JVD. ABDOMEN: Soft, non-distended, no guarding. MSK: Normal ROM, no swelling/deformity to bilateral UEs or LEs, moving all extremities without weakness, no cyanosis, spine midline without tenderness, normal curvature. R LE: Ligamentous laxity with anterior drawer and Abraham's, negative Nuha, negative laxity to varus valgus forces, mild joint line tenderness no gross swelling, tib-fib stable, femur stable, patella mobile, no crepitus NEURO: Mental Status AAOx4 - alert to person, place, time, events No facial droop, no forehead involvement. Motor: No focal weakness - strength 5/5 in bilateral UEs and LEs, proximal and distal, symmetric. Sensory: sensation intact to light touch globally. Gait normal: patient ambulated without ataxia into ED room. PSYCH: euthymic, cooperative, pleasant, appropriate speech Course Vital Signs Vital signs: Vital Signs Temperature 36.6 C 04/05/23 09:26 Pulse 82 04/05/23 09:26 Respiratory Rate 18 04/05/23 09:26 Blood Pressure 131/80 04/05/23 09:26 Pulse Oximetry 98 04/05/23 09:26 Temperature 36.6 C 04/05/23 09:26 Pulse 82 04/05/23 09:26 Respiratory Rate 18 04/05/23 09:26 Blood Pressure 131/80 04/05/23 09:26 Pulse Oximetry 98 04/05/23 09:26 Medical Decision Making This dictation utilizes [id number] dictation software and may contain unedited grammatical errors. 37 y/o F presents to ED today with a chief complaint of R knee injury while skiing yesterday. Patient is R-leg dominant, denies inability to bear weight. Patients' medical history: noncontributory. Family and social history: noncontributory. Pertinent exam findings / vital signs include R LE: Ligamentous laxity with anterior drawer and Abraham's, negative Nuha, negative laxity to varus valgus forces, mild joint line tenderness no gross swelling, tib-fib stable, femur stable, patella mobile, no crepitus. Differential / pathologies of concern include ACL Injury, Meniscus Injury, Fracture, Sprain. Diagnostic studies of: -XR R knee - shows effusion. Interventions of: -none- patient already has adequate brace and crutches. ED Course/Assessment/Plan: 37-year-old female presents 1 day after ski accident where she tweaked her knee and felt a pop, she does have suspicion for ligamentous laxity in the ACL of the right knee with Nuha negative, no fracture seen on x-ray there is a small effusion, she has adequate crutches and we did provide a knee immobilizer and encouraged her to remain in as much extension as she could as well as perform RICE therapy and therapeutic dosing Tylenol and ibuprofen and follow-up with orthopedics. Findings not consistent with fracture or neurovascular compromise. Disposition of Internal Derangement of Right Knee. Patient verbalized understanding of the plan and return to ED criteria and engaged in shared decision making. Medical Records Medical records reviewed: Yes I reviewed the patient's medical records. Imaging Data Radiologic Study: Imaging: X-Ray Radiologist's impression: EXAM: XR KNEE RT 3V AP,LAT,JUNO CLINICAL HISTORY: R knee injury. TECHNIQUE: 2D digital imaging was performed of the right knee. Three views obtained. AP, lateral and PA tunnel views were obtained. COMPARISON: No exams were available for comparison FINDINGS: BONES: No acute fracture is present. No bony destructive lesion is seen. JOINTS: The knee is normally aligned. There is a small joint effusion. SOFT TISSUE: Normal. IMPRESSION: Small joint effusion. Quality:SDOH Health Related Social Needs: No Data to Display PFSH All Active Problems Internal derangement of right knee (Acute) depression (Acute) Encounter for intrauterine device placement (Acute) Maternal varicella, non-immune (Acute) Status post breast reduction (Acute) Medical History (Updated 04/05/23 @ 11:26 by GERONIMO Bro) Hypothyroid care and examination Term delivered 41 weeks gestation of Encounter for induction of labor Elderly multigravida, currently Hypothyroid in , antepartum Penicillin allergy Went to [facility] [place] [place] for allergy testing 04/08/21, has no risk of anaphylaxis, and 2% risk for skin rash. History of hypothyroidism during , resolved History of depression Family History Paternal Grandmother Breast cancer Father Hyperlipidemia Sister Autonomic neuropathy due to disorder of immune function Hypothyroid Social History Smoking/Tobacco Use Status: Never Smoking risk assessment performed?: Yes Alcohol Intake: current Alcohol Intake frequency: a few times a month Alcohol type: wine Drug use: Occasionally Substance use type: marijuana Do you feel safe at home: Yes Do you feel safe in your relationship?: Yes History History 6 Para 2 Hx # Term Pregnancies 2 Multiple births 0 Hx # Pregnancies 0 Ectopic pregnancies 0 AB induced 0 Hx Number of Living Children 2 AB spontaneous 4 Past Pregnancies Del. Date GA/Weeks # Preg Succ Route Wgt Sex Labor Lgth Anesthesia Location Prov Complic 10/22/19 40 No vaginal 3855.535 g Female Induced, 2 days regional [place], [place] 07/15/21 41 No vaginal 4518.914 g Male 24 hours regional [place] Delivery Date: 10/22/19 Last Updated by: Tamar Lanza CNM Placenta previa - resolved. unstable lie >37 wks, baby verted self on day of sched'ed C/S so IOL instead: raphael bulb & cervidil together, then pitocin, epidural, [place] Delivery Date: 07/15/21 Last Updated by: RUSSEL Rendon; pitocin augmentation Discharge Plan Disposition Patient Disposition: Home Discharge Details Clinical Impression: Internal derangement of right knee Primary Care Provider: [place] ED Provider: Colton Noguera Home Meds and New Rx's Prescriptions: Continued Probiotic 3 billion cell capsule 3,000 mmu cells PO DAILY Rx Instructions: administer with a meal magnesium carbonate 250 mg capsule 320 mg PO DAILY PRN ParaGard T 380A 380 square mm intrauterine device 1 device intrauterine ONCE Rx Instructions: as a single dose escitalopram oxalate [Lexapro] 10 mg tablet 10 mg PO DAILY Qty: 30 0RF Discharge Instructions Instructions: Knee Sprain (ED), ACL Injury (ED) Additional Instructions: You were seen in the emergency department for your right knee injury while skiing yesterday, your exam is suspicious for a possible ACL injury. Your x-ray is negative for fracture but does show effusion likely indicating an injury to one of the internal ligaments or structures of the knee like the meniscus. Please use therapeutic dosing of Tylenol (acetamenophen) & Advil (ibuprofen) in an alternating fashion as follows: Take 1000mg of Tylenol every 6 hours without missing doses- that is 4 times per day. Retirement in between the Tylenol dosings, take 400-600mg of Advil also on a 6 hour schedule, that is also 4 times per day. The daily maximum dosing of Tylenol is 4000mg, and the daily maximum dosing of Advil is 2400mg. This is safe to do for weeks. Please note that some common cold medications & prescription pain medications may contain acetamenophen and you need to read OTC drug labels and factor that in to maximum daily dosings. Remain in your knee brace, use crutches with toe tapping for weightbearing on the right foot, rest, ice, compress and elevate, seek orthopedic evaluation for likely MRI, return to the ED for any signs of complete neurovascular compromise in the right lower extremity. Referrals: [facility] [Provider Group] Discharge Data Discharge Date/Time-TO BE ENTERED AT DEPARTURE: 04/05/23 11:57
== END 2023-04-05 11:57 | disposition home or self-care (01) ==
PROVIDERS: Emergency Provider Physician Assistant
DX: M23.91 Unspecified internal derangement of right knee (principal); S89.81XA Other specified injuries of right lower leg, initial encounter; W50.1XXA Accidental kick by another person, initial encounter; Y93.23 Activity, snow (alpine) (downhill) skiing, snowboarding, sledding, tobogganing and snow tubing; Y92.838 Other recreation area as the place of occurrence of the external cause
CPT/HCPCS: 73562; 99283

== ENCOUNTER → 2023-05-05 02:01 | Outpatient (CLI) | payer BC, SELFPAY ==
--- NOTE | 2023-05-05 06:30 | DI.MRI_ITS ---
Exam(s) MR LOWER JOINT RT WO EXAM: MR LOWER JOINT RT WO CLINICAL HISTORY: R KNEE PAIN,INTERNAL DERANGEMENT RT KNEE,M23.91. TECHNIQUE: Multiplanar multisequence MRI was performed. COMPARISON: CR XR KNEE RT 3V AP,LAT,JUNO from 04/05/2023 FINDINGS: BONES: There is marrow edema seen in the lateral femoral condyle and the lateral proximal tibia. The re is also mild marrow edema seen in the head of the fibula. There is an oblique linear area of hypo intense signal seen on the lateral view in the posterior aspect of the lateral tibial plateau suspici ous for a nondisplaced fracture. (Series [id number], image 13). JOINTS: Articular cartilage is unremarkable. There is a small to moderate size joint effusion. There is a small amount of fluid seen in the proximal tibial fibular joint. TENDONS: Extensor mechanism: Unremarkable. Medial retinaculum: Unremarkable. Lateral retinaculum: Unremarkable. Popliteus: Unremarkable. MUSCLES: Unremarkable. MENISCI: The medial meniscus is unremarkable. The lateral meniscus is unremarkable. SOFT TISSUES: There is mild edema seen in the soft tissues posterior lateral to the proximal fibula. There is also mild edema seen anterior to the tibia. But no focal fluid collection is seen in eithe r of these areas. LIGAMENTS: Anterior Cruciate: There is hyperintense signal and some thickening and irregularity of the proximal ACL suspicious for partial tear. Posterior Cruciate: Unremarkable. Medial Collateral:Unremarkable. Lateral Collateral: There is mild hyperintense signal seen around the LCL complex consistent with a s prain. OTHER: IMPRESSION: 1. Findings suggestive of at least a partial tear of the proximal anterior cruciate ligament. 2. Findings suggestive of a small nondisplaced fracture involving the posterior lateral aspect of the lateral tibial plateau. There is marrow edema/contusions involving the lateral femoral condyle, fib ular head and lateral proximal tibia. 3. LCL complex sprain. 4. Effusion seen within the knee joint and the proximal tibial fibular joint. 5. No evidence of a meniscal tear. 6. Mild edema seen posterior lateral to the fibular head and anterior to the patella. No focal fluid collection is seen in the areas. DATA REPOSITORY:
== END ==
PROVIDERS: Visit Provider Student in an Organized Health Care Education/Training Program
DX: S83.511A Sprain of anterior cruciate ligament of right knee, initial encounter (principal); X58.XXXA Exposure to other specified factors, initial encounter
CPT/HCPCS: 73721

== ENCOUNTER 2023-08-27 07:11 | Day surgery (SDC) | payer BC, SELFPAY ==
[2023-08-27] VITALS (34 sets, daily range): BP systolic 77–120; BP diastolic 38–79; PULSE 57–80; RESP 7–19; TEMP 36–36.7; O2SAT 93–100; BMI 28.8
--- NOTE | 2023-08-27 07:11 | PDOC.DSDIS_ITS ---
Date of service: 08/27/23 Time of Service: 14:00 Discharge Plan Disposition Patient Disposition: Home Condition: Stable Discharge Details Attending Provider: Uli Peters Primary Care Provider: None,None Home Meds and New Rx's Prescriptions: New aspirin 81 mg capsule 81 mg PO DAILY 14 Days Qty: 14 0RF naproxen 250 mg tablet 250 - 500 mg PO BID PRN (Reason: moderate pain and swelling) Qty: 40 0RF oxycodone 5 mg tablet 5 - 10 mg PO .q4-6h PRN (Reason: severe pain) Qty: 18 0RF Continued ParaGard T 380A 380 square mm intrauterine device 1 device intrauterine ONCE Rx Instructions: as a single dose Discharge Instructions Additional Instructions: Surgery: Right knee arthroscopy with ACL reconstruction (allograft) Activity: Weightbearing as tolerated. No brace or crutches needed as soon as comfortable and stable on knee. Restore full knee extension as soon as possible. Perform early quad sets/quadriceps isometrics. Gradually increase flexion to full. Recommend elevation to minimize swelling discomfort. Encourage ankle pumps and wiggle toes to improve circulation. A physical therapy prescription will be sent electronically to begin in 2 to 3 weeks. Avoid sports activities for about 9-12 months. Prescriptions: Aspirin 81 mg take 1 daily to prevent a blood clot for 14 days, starting tomorrow Naproxen 250 mg take 1-2 every 12 hours with a meal as needed for moderate pain Oxycodone 5 mg take 1-2 every 4-6 hours as needed for severe pain You may use [id number] Tylenol (acetaminophen) as needed for mild pain. These pain medications may be taken all at once or in different combinations as needed. Also, recommend Colace (docusate) as a stool softener as surgery and pain medicine cause constipation. You may try [id number] diphenhydramine (Benadryl) 25-50 mg nightly as a sleep aid Dressings: Loosen/adjust STEPHANI bandage for comfort. Leave dressing in place for 3 days. May then remove and leave open to air or cover incisions with Band-Aids. Leave the sticky Steri-Strips in place until they fall off or remove them after you shower. May shower after 5 days. Follow-up: 10-[address] Peters You may take off the leg compression stockings this evening at home. You may also leave them on a few days longer if you have a history of leg swelling or edema. Let us know right away if you develop any redness, drainage, fevers, chest pain, or trouble breathing. Do not drink alcohol or drive for at least 24 hours after anesthesia. Please call the office during business hours with any questions or concerns. Stand Alone Forms: Anesthesia Discharge Inst., Anes.Nerve Block Instructions, Volodymyr Warren ([facility]) Referrals: Uli Peters MD [ [facility] STAFF PHYSICIAN] - 09/07/23 10:30 am Discharge Orders Discharge Orders: Discharge Order (Routine); Ordered 08/27/23 Ordered By: Adelina Corey DS: Diagnosis Discharge Diagnosis (1) Right ACL tear: Status: Acute
--- NOTE | 2023-08-27 07:15 | ROE_ITS ---
Date of service: 08/27/23 Time of Service: 10:00 Operative Note Operative Note DATE OF PROCEDURE: 08/27/23 PRE-OP DIAGNOSIS: Right knee: 1. ACL rupture PROCEDURE: Right knee: 1. ACL reconstruction, CPT #78523: Quadriceps allograft SURGEON: Uli Peters SHUTTLE PREPARATION SUPERVISOR: Adelina Corey ANESTHESIA TYPE: Local By Surgeon, General LMA/ETT and Primary Nerve Block Refer to Anesthesia Record ESTIMATED BLOOD LOSS: 5 TOURNIQUET TIME: 0 COMPLICATIONS: None Patient was transported to: PACU Patient's condition: stable Implants: Arthrex ACL TightRope II RT and ABS with 8x12 mm cortical button QuadLink pre-sutured quadriceps allograft: 10.5 x 70 mm Indications: Please see complete medical record for details. Findings: Exam under anesthesia: Full range of motion, similar exam as in the office with firm endpoint although increased translation nearing full extension and more grossly positive Abraham and increasing flexion, positive anterior drawer, and positive pivot glide. Stable varus and valgus. Arthroscopic findings: Focal mild superior facet chondromalacia patella, minimal lateral meniscus body fraying, high-grade proximal ACL rupture. Intact remainder articular cartilage. Intact medial meniscus. Procedure Description: In the operating room, general anesthesia was induced. The patient was positioned supine on the operating room table. All bony prominences were well- padded. Preoperative antibiotics were administered. The knee was prepped and draped in the usual sterile fashion. The correct patient, procedure, and side of the procedure were all verified prior to incision. Exam under anesthesia was performed. Local anesthetic containing epinephrine was infiltrated about the planned anteromedial, anterolateral, lateral distal femoral, and pretibial surgery sites. The standard high and tight anterolateral and anteromedial portals were established and a complete diagnostic arthroscopy was performed with relevant findings detailed above. A passport cannula was inserted in both the anteromedial and anterolateral portals. Patellar cartilage lesion and the lateral meniscus fraying were both small and did not require any formal treatment more than a light debridement with mechanical shaver. In the intercondylar area, the ACL remnant was thoroughly inspected and probed in case it was adequate for repair but it showed proximal to mid substance degeneration despite having some remnant intact fibers and was not really appropriate for repair. It was removed leaving enough footprint on the femur and tibia to localize anatomic socket placement. A small notchplasty was performed to allow proper visualization of the back wall. The graft was measured and prepared on the back table. The TightRope II BTB and TightRope II ABS adjustable-loop cortical suspensory fixation implants were loaded on QuadLink pre-sutured quadriceps allograft. The femoral side measured 10.5 mm in the tibial and 10 mm. The graft was marked at 20 mm from each end. On the ABS side, the tensioning sutures were marked and a shuttle suture was added. The graft was manually tensioned and the construct did not demonstrate any elongation. The graft was then compressed in a graft tube and covered with vancomycin soaked sponges. The femoral guide was then placed through the anterolateral portal carefully targeting the appropriate anatomic ACL origin. The outer 9 mm diameter of the guide was positioned anatomically with appropriate space between the proximal and posterior articular margins. On the lateral thigh, drill guide position and angle adjusted to about 60 degree angle to the longitudinal axis of the femur in the coronal plane and 20 degree angle to the trans-epicondylar axis in the axial plane to create the most optimal femoral socket. Knife and snap were used to open the skin and IT band and placed the drill guide on bone while maintaining appropriate position on the lateral wall. The tunnel length was noted to be used for marking and passing the femoral button. The flip cutter was then drilled to the appropriate location. The drill guide malleted 7 mm into the cortex. The remainder of the targeting guide removed. The FlipCutter was deployed to 10.5mm and retrograde reaming done to a depth of almost 30 mm. Bony debris was removed with the shaver. The flip cutter was then closed, withdrawn, and a FiberStick used to pass a #2 FiberWire shuttle stitch, which was withdrawn out the anterolateral portal. The tibial guide was then used to target the anatomic ACL insertion through the anteromedial portal. The drill angle adjusted to 57.5 degrees and a pretibial incision made. The drill guide was placed on bone, tunnel length noted, and the flip cutter drilled to the appropriate location. The drill guide malleted 7 mm into the cortex. The remainder of the targeting guide removed. The FlipCutter was deployed to 10mm and retrograde reaming done to a depth of 30 mm. Bony debris was removed with the shaver. The flip cutter was then closed, withdrawn, and a FiberStick used to pass a #2 FiberWire shuttle stitch, which was withdrawn out the anteromedial portal. The mechanical shaver was used to remove bone debris as well as chamfer and remove soft tissue from the edges of the sockets. A femoral shuttle sutures were withdrawn out the anterior medial portal. The PassPort was removed. This portal dilated to accommodate the graft size. The graft was brought over to the knee and the femoral sutures shuttled out the lateral thigh and advanced until the button was near the far cortex. Under arthroscopic visualization with the knee slightly hyperflexed, and the button was then passed and flipped on the far cortex. Counter traction was then maintained on the tibial side of the graft while it was carefully advanced into the knee and then about 15 mm into the femoral socket. The tibial sutures were then shuttled through the tibial tunnel and passing stitch removed while carefully noting the tensioning stitches. The graft was then dunked about 15 mm into the tibial socket. 8x12 mm ABS button was then loaded to the ABS loop and tension sutures used to bring the cortical button down to bone. The graft was advanced and then provisionally tensioned on both the femoral and tibial sides. The knee was then cycled 22 times, tensioning rechecked, and final tightening done with the knee in full extension with a moderate reverse Abraham maintained. The graft position and tension were appropriate. There was no impingement in full extension. Abraham exam was stable. Femoral passing sutures were removed. Backup knots were then tied on both sides and suture tails cut. The knee and all portals were copiously irrigated and then knee drained of arthroscopic fluid. 3-0 Monocryl was used to close the portals and small inci sions in a buried interrupted fashion. Mastisol, Steri-Strips, Xeroform, 4 x 4 gauze, and sterile soft roll was applied. The extremity was wrapped gently with an Justin bandage. A soft knee immobilizer placed. The patient awoke from anesthesia without complication and was transferred to the recovery room in a stable condition.
[2023-08-27] MEDS: Lactated Ringers 1,000 ML 30 ML IV (07:42)
--- NOTE | 2023-08-27 07:59 | ANES.PREOP_ITS ---
General Info Date of Service Date Performed: 08/27/23 Height: 5 ft 9 in Weight: 88.6 kg Body Mass Index (BMI): 28.8 Surgical Procedure: Operation Date: 08/27/23 09:25 Proposed Procedure Side Surgeon p Knee ACL Reconstruction (Allograft), Possible Repair Right Uli Peters MD Actual Procedure Side Surgeon p Knee ACL Reconstruction (Allograft), Possible Repair Right Uli Peters MD Pre-Op Diagnosis Post-Op Diagnosis ACL RUPTURE & MEDIAL MENISCUS TEAR Meds Allergies and Home Medications Allergies Allergy/AdvReac Type Severity Reaction Status Date / Time Penicillins Allergy Severe Full Blown Verified 08/27/23 07:29 rash/hives Home Medication Medication Instructions Recorded copper 380 square mm intrauterine 1 device intrauterine ONCE 09/03/21 device (ParaGard T 380A) Current Visit Medications: Current Medications Generic Name Dose Route Start Last Admin Trade Name Freq PRN Reason Stop Dose Admin Ringer's Solution 1,000 mls @ 30 mls/hr 08/27/23 06:00 08/27/23 07:42 IV 08/27/23 23:59 30 mls/hr INFUSION GALO Administration Cefazolin Sodium/Dextrose 2 gm in 50 mls @ 100 mls/hr 08/27/23 06:00 Ancef Duplex IVPB 08/27/23 23:59 PREOP GALO Tranexamic Acid/Sodium Chloride 1,000 mg in 100 mls @ 600 mls/hr 08/27/23 06:0 0 IVPB 08/27/23 23:59 PREOP GALO IV Miscellaneous Supplies 1 each 08/27/23 06:00 Iv Access IV 08/27/23 23:59 DIRECTED GALO Oxycodone HCl 0 mg 08/27/23 07:10 Oxycodone 5 Mg Tab PO 09/26/23 07:09 Q3H PRN PRN Pain Sodium Chloride 0 ml 08/27/23 06:00 Normal Saline Flush 10 Ml Syr IV 08/27/23 23:59 PRN PRN Sodium Chloride 0 ml 08/27/23 06:00 Normal Saline 10 Ml Vial IJ 08/27/23 23:59 DIRECTED PRN Sterile Water 0 ml 08/27/23 06:00 Water,Injection,Sterile 10 Ml Vial IJ 08/27/23 23:59 DIRECTED PRN PFSH Active Problems Active Problems: Problem Status Onset Code Right ACL tear 01/28/24 S83.511A depression F53.0 Encounter for intrauterine device placement Z30.430 Maternal varicella, non-immune O09.899, Z28.3 Status post breast reduction Z98.890 Medical History Medical History Hypothyroid care and examination Term delivered 41 weeks gestation of Encounter for induction of labor Elderly multigravida, currently Hypothyroid in , antepartum Penicillin allergy Went to [facility] for allergy testing 04/08/21, has no risk of anaphylaxis, and 2% risk for skin rash. History of hypothyroidism during , resolved History of depression Medical History Comments:: Pt. states she is sensitive to anesthesia it can take her long to come out of it Surgical History Surgical History Hx of wisdom tooth extraction Tobacco Smoking/Tobacco Use Status: Never Alcohol Alcohol Intake: current Alcohol intake frequency: a few times a month Alcohol type: wine Substance Use Substance use: Occasionally Substance use type: marijuana Details: 08/27/23: pt smoked marijuana 08/26/23 Prental History History 6 Para 2 Hx # Term Pregnancies 2 Multiple births 0 Hx # Pregnancies 0 Ectopic pregnancies 0 AB induced 0 Hx Number of Living Children 2 AB spontaneous 4 Past Pregnancies Del. Date GA/Weeks # Preg Succ Route Wgt Sex Labor Lgth Anesth esia Location [facility] 10/22/19 40 No vaginal 3855.535 g Female Induced, 2 days regio [place], [place] 07/15/21 41 No vaginal 4518.914 g Male 24 hours regional [facility] May Delivery Date: 10/22/19 Last Updated by: Tamar Lanza CNM Placenta previa - resolved. unstable lie >37 wks, baby verted self on day of sched'ed C/S so IOL instead: raphael bulb & cervidil together, then pitocin, epidural, Corine Delivery Date: 07/15/21 Last Updated by: RUSSEL Rendon; pitocin augmentation Vital Signs and Lab Results Vital Signs Most Recent Vital Signs in EMR: Most Recent Vital Signs Temp Pulse Resp BP Pulse Ox 36.3 C L 75 18 120/71 99 08/27/23 07:22 08/27/23 07:22 08/27/23 07:22 08/27/23 07:22 08/27/23 07:22 Point of Care Results Point of Care Results: POC- Test(urine) Negative 08/27/23 07:54 Lab Results Blood Type / Crossmatch: No Data to Display Complete Blood Count: No Data to Display Complete Metabolic Panel: No Data to Display Liver Function Panel: No Data to Display Coagulation Panel: No Data to Display Cardiac Panel: No Data to Display Arterial Blood Gas: No Data to Display Venous Blood Gas: No Data to Display Pancreas Panel: No Data to Display Thyroid Panel: No Data to Display Infectious Disease: No Data to Display Blood Cultures: No Data to Display Toxicology Panel: No Data to Display Panel: No Data to Display Anesthesia Assessment and Plan Anesthesia History Personal History: Delayed Emergence Family History: No Family History of Anesthesia Complications Exercise Tolerance Exercise Tolerance: Metabolic Equivalents>4 Pertinent Negatives Pertinent Negatives: No Symptoms of GERD, No Major Cardiovascular Symptoms or Complaints, No Major Pulmonary Symptoms or Complaints and No History of CVA/TIA Cardiac & Pulmonary Exam Cardiac Exam: Normal S1/S2 Heart Sounds Pulmonary Exam: Clear Bilateral Breath Sounds Implantable Cardiac Device Does patient have a Pacemaker or an ICD?: No Airway Exam Known Difficult Airway: No Mallampati Class: 2 Mouth Opening: Normal (> 3cm) Thyromental Distance: Greater than 3 cm Neck Range of Motion: Full ROM Neck Circumference: Normal Teeth Condition: Normal Dentition ASA Classification ASA Score: ASA 2 Emergency Case?: No NPO Status NPO Status: NPO Clears >2 hours, Solids >8 hours Status Status: Negative HCG Anesthesia Plan Resuscitation Status: Full Code Anesthesia Technique: General Anesthesia Airway Planned: Endotracheal Tube Pain Management: Surgeon and patient request nerve block Monitors Used: Standard Monitors
--- NOTE | 2023-08-27 09:09 | W.ANESNERVE ---
Nerve Block Single Injection Procedure Date and Time Date Performed: 08/27/23 Procedure Start: 09:01 Location Where Procedure Performed Procedure Location: Day Surgery Unit Reason Performed: Postoperative Analgesia Requesting Provider: Uli Peters Timeout Performed Timeout Performed: Yes Monitoring Used ECG, Blood Pressure, SpO2 and See EMR for corresponding vital signs Sterility Sterility: Hand Hygiene, Surgical Cap, Surgical Mask, Sterile Gloves, Sterile Drape/Sheet and Chlorhexidine Sedation Given During Procedure Sedation Given (Indicate Dose Given): No Sedation given Patient Mental Status Patient Mental Status: Awake Nerve Block 1st Nerve Block: Laterality: Right Block Type: Adductor Canal Ultrasound Image Saved?: Yes Needle / Catheter Used: 100mm SonoPlex II Local Anesthetic Bolus (Indicate Dose Given): Lidocaine used for local infiltration of skin, Injected in 3-5ml increments after negative blood aspiration, Bupivacaine 0.25% Dose:: 10 ml and Exparel Dose:: 10 ml Additives (Indicate Dose Given): None Ultrasound: Sterile probe cover and gel used Nerve Stimulator: Supplement to Ultrasound use and No twitch or parasthesia noted < 0.5 mA Paresthesia: None Procedure Tolerated: No Complications and Patient tolerated well Procedure Outcome: Successful Performed By: Nanda Lyons
[2023-08-27] MEDS: ceFAZolin 2 GM/50 ML BAG IVPB (09:43)
[2023-08-27] MEDS: TRANEXAMIC ACID/SOD. CHL. 1,000 MG/100 ML BAG 600 MG IVPB (09:50)
[2023-08-27] MEDS: Bupivacaine 0.25% Pres-Free W/EPI 30 ML VIAL (10:13)
[2023-08-27] MEDS: EPINEPHrine 10 MG/10 ML ML (12:25)
[2023-08-27] MEDS: ePHEDrine 25 MG/5 ML Syringe IVP (12:49)
[2023-08-27] MEDS: HYDROmorphone 2 MG/ML SYR IVP (13:00)
--- NOTE | 2023-08-27 13:26 | W.ANESPOSTOP ---
Postoperative Evaluation Date, Time and Location Date Performed: 08/27/23 Time Performed: 13:18 Patient Location: PACU Vital Signs Most Recent Imported Vital Signs: Most Recent Vital Signs Temp Pulse Resp BP Pulse Ox 36.6 C 68 12 101/51 L 98 08/27/23 13:15 08/27/23 13:15 08/27/23 13:16 08/27/23 13:15 08/27/23 13:16 Pain Score Most Recent Pain Score: Most Recent Pain Score Pain Level 1 08/27/23 13:15 Assessment Mental Status: Awake (Alert & Oriented to Patient Baseline) Airway and Respiratory Function: Patent airway with normal (patient baseline) respiratory exam Cardiovascular Function: Hemodynamically Stable Hydration Status: Adequately Hydrated Nausea & Vomiting: No Nausea or Vomiting Pain: Pain is tolerable per patient Peripheral Nerve Block: Regional nerve block not resolved at time of post operative discharge
== END 2023-08-27 14:40 | disposition home or self-care (01) ==
LOC: SUR 07:12
PROVIDERS: Visit Provider Student in an Organized Health Care Education/Training Program
PROC: (CPT 29888; principal; 2023-08-27 09:15)
DX: S83.511A Sprain of anterior cruciate ligament of right knee, initial encounter (principal); X58.XXXA Exposure to other specified factors, initial encounter
CPT/HCPCS: 29888; 76942; 81025; C9290; J0665; J0690; J1100; J1170; J1885; J2405; J2704; J3010; J3370

== ENCOUNTER 2024-07-17 11:25 | Outpatient (REF) | payer BC, SELFPAY | END 2024-07-17 11:26 | disposition home or self-care (01) | LOC: LBN 11:25 | PROVIDERS: Visit Provider Nurse Practitioner Family | DX: L98.9 Disorder of the skin and subcutaneous tissue, unspecified (principal); R30.0 Dysuria | CPT/HCPCS: 87077; 87070; 87205; 87480; 87510; 87660 ==